=== PATIENT | female | born 1985 | race African-American/Black ===

== ENCOUNTER 2018-09-18 00:56 | Inpatient (IN) | payer MEDICAID ==
[~2018-09-18] VITALS: Ht 172.7 cm; Wt 68.0 kg
[2018-09-18] MEDS ORDERED: DEXT 5%/LR + PITOCIN 20UNITS/L 1,000 ML IV SCH (01:04)
[2018-09-18] MEDS ORDERED: BUTORPHANOL TARTRATE 2 MG/ML VIAL IV PRN (01:15)
[2018-09-18] MEDS ORDERED: METHYLERGONOVINE MALEATE 0.2 MG/ML IM PRN (01:15)
[2018-09-18] MEDS ORDERED: LIDOCAINE HCL 1% 20ML VIAL (Pyxis) INJ INFIL SCH (01:15)
[2018-09-18] MEDS ORDERED: MISOPROSTOL 100MCG TABLET VG SCH (01:15)
[2018-09-18] MEDS ORDERED: CARBOPROST TROMETHAMINE 250 MCG/ML AMPUL IM PRN (01:15)
[2018-09-18] MEDS ORDERED: NALOXONE HCL 0.4 MG/ML 1ML VIAL IM PRN (01:15)
[2018-09-18 01:25] LABS: BASOPHILS % 0.4 % (0.0-2.0); EOSINOPHILS % 0.4 % (0.0-5.0); HEMATOCRIT. 34.6 % (36.0-48.0); HEMOGLOBIN. 11.2 g/dL (12.0-16.0); LYMPHOCYTES % 20.9 % (20.0-50.0); MEAN CORPUSCULAR HEMOGLOBIN 27.4 pg (28.0-32.0); MEAN CORPUSCULAR VOLUME 84.8 fL (81.0-99.0); MONOCYTES % 8.2 % (2.0-8.0); NEUTROPHILS % 70.1 % (40.0-76.0); PLATELET 206 x1000/uL (130-400); RED BLOOD CELL COUNT 4.08 mill/uL (4.2-5.4); RED CELL DISTRIBUTION WIDTH 17.7 % (11.6-14.6)
[2018-09-18] MEDS ORDERED: PENICILLIN G POTASSIUM 5 MMU in DEXT 5% WATER 100 ML IV SCH (01:30)
[2018-09-18 01:34] LABS: PARTIAL THROMBOPLASTIN TIME 28.9 sec (23.4-31.0); PROTHROMBIN TIME 9.8 sec (9.1-11.1)
[2018-09-18] MEDS: LACTATED RINGERS 1,000 ML IV SCH ×2 (01:44→04:32)
[2018-09-18 02:07] LABS: HEPATITIS B SURFACE ANTIGEN NEGATIVE
[2018-09-18] MEDS ORDERED: LANOLIN OINT 0.25 GM TUBE TOP PRN (05:45)
[2018-09-18] MEDS ORDERED: BENZOCAINE/LANOLIN/ALOE VERA SPRAY TOP PRN (05:45)
[2018-09-18] MEDS ORDERED: DIPHENHYDRAMINE 25MG CAPSULE PO PRN (05:45)
[2018-09-18] MEDS ORDERED: GLYCERIN/WITCH HAZEL LEAF MEDICATED PAD TOP PRN (05:45)
[2018-09-18] MEDS ORDERED: HEMORRHOIDAL SUPP PR PRN (05:45)
[2018-09-18] MEDS ORDERED: IBUPROFEN 400MG TABLET PO PRN (05:45)
[2018-09-18] MEDS: DEXT 5%/LR + PITOCIN 20UNITS/L 1,000 ML IV SCH ×2 (05:59→06:33)
[2018-09-18] MEDS ORDERED: PENICILLIN G POTASSIUM 2.5 MMU in DEXTROSE 5% WATER 50 ML IV SCH (06:00)
[2018-09-18] MEDS: IBUPROFEN 800MG TABLET PO PRN ×2 (08:24→18:53)
[2018-09-18 08:33] LABS: CLARITY URINE CLEAR (CLEAR); COLOR URINE YELLOW (YELLOW); KETONES URINE NEGATIVE (NEGATIVE); LEUKOCYTE ESTERASE URINE TRACE (NEGATIVE); NITRITE URINE NEGATIVE (NEGATIVE); OCCULT BLOOD URINE NEGATIVE (NEGATIVE); PROTEIN URINE NEGATIVE (NEGATIVE); SPECIFIC GRAVITY URINE 1.017 (1.005-1.030); UROBILINOGEN URINE 0.2 E.U./dL (0.2-1.0)
[2018-09-18 08:53] LABS: *AMPHETAMINES SCREEN URINE NEGATIVE (NEGATIVE)
[2018-09-18 08:54] LABS: *BARBITURATES SCREEN URINE NEGATIVE (NEGATIVE); *BENZODIAZEPINES SCREEN URINE NEGATIVE (NEGATIVE); *COCAINE SCREEN URINE NEGATIVE (NEGATIVE); METHADONE URINE SCREEN NEGATIVE (NEGATIVE); OPIATES URINE SCREEN NEGATIVE (NEGATIVE); PHENCYCLIDINE URINE SCREEN NEGATIVE (NEGATIVE)
[2018-09-18 08:55] LABS: CANNABINOID URINE SCREEN NEGATIVE (NEGATIVE)
[2018-09-18] MEDS: SIMETHICONE 80MG TABLET CHEW PO SCH ×4 (09:00→22:02)
[2018-09-18] MEDS: PRENATAL VIT/FE FUMARATE/FA TABLET PO SCH (09:00)
[2018-09-18 09:30] VITALS: BP 99/54
[2018-09-18 10:30] VITALS: BP 102/59
[2018-09-18] MEDS ORDERED: INFLUENZA VIRUS VACCINE(AFLURIA) 0.5ML SYR IM ONE (12:00)
[2018-09-18] MEDS ORDERED: TETANUS, DIPHTHERIA, PERTUSSIS VAC/PF 0.5ML (>7YR OLD) IM ONE (12:00)
[2018-09-18 18:57] VITALS: BP 100/52
[2018-09-18 20:00] VITALS: BP 93/53
[2018-09-18] MEDS: DOCUSATE SODIUM 100MG CAPSULE PO SCH (22:02)
[2018-09-19] VITALS: BP 91/64
[2018-09-19 07:10] LABS: BASOPHILS % 0.2 % (0.0-2.0); EOSINOPHILS % 0.5 % (0.0-5.0); HEMATOCRIT. 32.5 % (36.0-48.0); HEMOGLOBIN. 10.6 g/dL (12.0-16.0); LYMPHOCYTES % 15.7 % (20.0-50.0); MEAN CORPUSCULAR HEMOGLOBIN 27.6 pg (28.0-32.0); MEAN CORPUSCULAR VOLUME 84.4 fL (81.0-99.0); MEAN PLATELET VOLUME 8.4 fl (7.4-10.4); MONOCYTES % 4.2 % (2.0-8.0); NEUTROPHILS % 79.4 % (40.0-76.0); PLATELET 196 x1000/uL (130-400); RED BLOOD CELL COUNT 3.84 mill/uL (4.2-5.4); RED CELL DISTRIBUTION WIDTH 17.5 % (11.6-14.6)
[2018-09-19 08:30] VITALS: BP 107/67
[2018-09-19] MEDS: PRENATAL VIT/FE FUMARATE/FA TABLET PO SCH (10:13)
[2018-09-19] MEDS: FERROUS SULFATE 325MG TABLET PO SCH ×2 (10:13→12:30)
[2018-09-19] MEDS: SIMETHICONE 80MG TABLET CHEW PO SCH ×3 (10:13→21:00)
[2018-09-19 15:30] VITALS: BP 102/70
[2018-09-19 20:30] VITALS: BP 105/68
[2018-09-19] MEDS: DOCUSATE SODIUM 100MG CAPSULE PO SCH (21:00)
[2018-09-20] MEDS: IBUPROFEN 800MG TABLET PO PRN (07:50)
[2018-09-20 08:46] VITALS: BP 109/73
[2018-09-20] MEDS: SIMETHICONE 80MG TABLET CHEW PO SCH (10:15)
[2018-09-20] MEDS: PRENATAL VIT/FE FUMARATE/FA TABLET PO SCH (10:15)
[2018-09-20] MEDS: FERROUS SULFATE 325MG TABLET PO SCH (10:15)
== END 2018-09-20 15:30 | disposition home or self-care (01) | DRG 560 ==
LOC: 8 EST LDRP 00:56 → 8EST 09:45
PROVIDERS: ADMIT Specialist; ATTEND Specialist
PROC: 0UQGXZZ Repair Vagina, External Approach (ICD-10-PCS; 2018-09-18)
PROC: 10E0XZZ Delivery of Products of Conception, External Approach (ICD-10-PCS; principal; 2018-09-18 05:23)
DX: O99.02 Anemia complicating childbirth (principal); O71.4 Obstetric high vaginal laceration alone; D64.9 Anemia, unspecified; O69.81X0 Labor and delivery complicated by cord around neck, without compression, not applicable or unspecified; F32.9 Major depressive disorder, single episode, unspecified; O99.344 Other mental disorders complicating childbirth; Z37.0 Single live birth; Z3A.39 39 weeks gestation of pregnancy
CPT/HCPCS: 36415; 80305; 86592; 86703; 86762; 86850; 86900; 87340; 90686; 90715; J2310; J2540; J2590; J3490; J7060